=== PATIENT | male | born 1985 | race Caucasian/White ===

== ENCOUNTER 2023-12-10 10:27 | Outpatient (REF) | payer MEDICAID, SELFPAY ==
--- NOTE | 2023-12-10 08:15 | TONSIL_PTH ---
PATIENT: Marc Zafar LOC: [facility] U#:[id number] AGE/SX: 38/M ROOM: RE12/10/[address]: Kei Robles MD : [id number] BED: DIS: 12/10/2023 SPEC #: [id number] RECD: 12/10/23 17:32 STATUS: JOSÉ MIGUEL REQ #: [id number] STEPHANIE: 12/10/23 08:[address]: Kei Robles DEPT: Surgical Specimen RECD BY: Ernestina Madrid ENTERED: 12/10/23 17:33 SP TYPE: TONSIL OTHR DR: Melissa Kwon MD, DC Tissues: 1 - TONSIL BIOPSY Procedures: GROSS AND MICRO LEVEL 4 Comments: [id number]
== END 2023-12-10 10:28 | disposition home or self-care (01) ==
LOC: LBN 10:27
PROVIDERS: PCP Family Medicine; Visit Provider Otolaryngology
DX: J39.2 Other diseases of pharynx (principal); D10.39 Benign neoplasm of other parts of mouth
CPT/HCPCS: 88305